=== PATIENT | male | born 1940 | race Caucasian/White ===

== ENCOUNTER 2018-06-10 06:55 | Day surgery (SDC) | payer MEDICARE, OTHER ==
[~2018-06-10] VITALS: Ht 170.2 cm; Wt 81.6 kg
[~2018-06-10 06:55] MED LIST: ASPI1TAB PO; ATOR1TAB21 PO; CALCTAB29 PO; CLAR10CA3 PO; GLUC1CAP10 PO; LOSA50TA88 PO; PROAAER10 INH
[2018-06-10] MEDS ORDERED: PROPOFOL 200 MG/20 ML VIAL As Ordered ONE (07:16)
[2018-06-10] MEDS ORDERED: LIDOCAINE 2% INJ 100 MG/5 ML SDV (FOR ANES.) As Ordered ONE (07:16)
[2018-06-10] MEDS ORDERED: NS 1,000 ML IV ONE (07:30)
--- NOTE | 2018-06-10 08:20 | ROOR ---
Patient Name: Carlos Florian Procedure Date: 06/10/2018 7:56 AM Date of : 1940 Age: 78 Room: [facility] Gender: Male Note Status: Finalized Procedure: Colonoscopy Indications: High risk colon cancer surveillance: Personal history of colonic polyps, Last colonoscopy: February 2013 Providers: Jorge BARTHOLOMEW MD Referring MD: Terry Snider MD Requesting Provider: Medicines: Monitored Anesthesia Care Complications: No immediate complications. Procedure: Pre-Anesthesia Assessment: - The heart rate, respiratory rate, oxygen saturations, blood pressure, adequacy of pulmonary ventilation, and response to care were monitored throughout the procedure. The Colonoscope was introduced through the anus and advanced to the cecum, identified by appendiceal orifice and ileocecal valve. The colonoscopy was performed without difficulty. The patient tolerated the procedure well. The quality of the bowel preparation was good. Findings: The perianal and digital rectal examinations were normal. Multiple medium-mouthed diverticula were found in the sigmoid colon. Internal hemorrhoids were found during retroflexion. The hemorrhoids were moderate. Retroflexion in the right colon was performed. The exam was otherwise without abnormality on direct and retroflexion views. Impression: - Diverticulosis in the sigmoid colon. - Internal hemorrhoids. - The examination was otherwise normal on direct and retroflexion views. - No specimens collected. Recommendation: - Repeat colonoscopy PRN. Jorge Bartholomew MD Jorge BARTHOLOMEW MD 06/10/2018 8:20:46 AM This report has been signed electronically. Number of Addenda: 0 Note Initiated On: 06/10/2018 7:56 AM Estimated Blood Loss: Estimated blood loss: none.
[2018-06-10 08:46] VITALS: BP 117/72
== END 2018-06-10 08:47 | disposition home or self-care (01) ==
LOC: M OPP 06:55
PROVIDERS: ATTEND Internal Medicine Gastroenterology
DX: Z86.010 Personal history of colon polyps (principal); K64.8 Other hemorrhoids; K57.30 Diverticulosis of large intestine without perforation or abscess without bleeding; G47.30 Sleep apnea, unspecified; E78.00 Pure hypercholesterolemia, unspecified; Z85.46 Personal history of malignant neoplasm of prostate; Z79.82 Long term (current) use of aspirin; Z79.899 Other long term (current) drug therapy

== ENCOUNTER → 2019-12-21 | Outpatient (REF) | payer MEDICARE, OTHER ==
[~2019-12-21] MED LIST changes: -ASPI1TAB PO; +ASPI81TA26 PO
== END ==
LOC: M LAB REF 12:56
PROVIDERS: ATTEND Dermatology
DX: D23.39 Other benign neoplasm of skin of other parts of face (principal)

== ENCOUNTER → 2020-06-18 | Outpatient (REF) | payer MEDICARE, OTHER, BC | LOC: M LAB REF 17:13 | PROVIDERS: ATTEND Dermatology | DX: L90.5 Scar conditions and fibrosis of skin (principal); L82.1 Other seborrheic keratosis ==